=== PATIENT | male | born 1975 | race Hispanic/Latino ===

== ENCOUNTER → 2023-12-27 | Outpatient (REF) | payer MEDICARE ==
[~2023-12-27] MED LIST: GADOBENATE DIMEGLUMINE 1 ML IV ONE
== END ==
LOC: MRI 08:32
PROVIDERS: ATTEND Pediatrics
DX: I63.9 Cerebral infarction, unspecified (principal)
CPT/HCPCS: 70553; A9577

== ENCOUNTER 2024-02-03 09:39 | Emergency (ER) | payer MEDICARE ==
[~2024-02-03] VITALS: Ht 167.6 cm; Wt 95.3 kg
[2024-02-03 10:45] VITALS: PULSE 82; RESP 15; TEMP 98.4; O2SAT 100
[2024-02-03] MEDS ORDERED: METHOCARBAMOL750 MG PO (11:00)
== END 2024-02-03 11:05 | disposition home or self-care (01) ==
LOC: ER 10:10
DX: M54.50 Low back pain, unspecified (principal); X50.0XXA Overexertion from strenuous movement or load, initial encounter; Y92.89 Other specified places as the place of occurrence of the external cause; E78.5 Hyperlipidemia, unspecified; Z86.73 Personal history of transient ischemic attack (TIA), and cerebral infarction without residual deficits
CPT/HCPCS: 99282